=== PATIENT | female | born 1960 | race Two or more races ===

== ENCOUNTER 2020-09-04 14:19 | Emergency (ER) | payer OTHER ==
[~2020-09-04] VITALS: Ht 162.6 cm; Wt 77.0 kg
[2020-09-04] MEDS ORDERED: MORPHINE SULFATE 4 MG/ML CPJ (NOT FOR IM USE) IV STA (14:47)
[2020-09-04] MEDS ORDERED: FAMOTIDINE 20MG/2ML VIAL IV ONE (15:00)
[2020-09-04] MEDS ORDERED: LABETALOL 5MG/ML SYR 20 MG/4 ML SYRINGE IV ONE (15:30)
[2020-09-04 16:02] LABS: BASOPHILS % 1.1 % (0.0-2.0); CHLORIDE 101 mEq/L (98-107); EOSINOPHILS % 2.7 % (0.0-5.0); HEMATOCRIT. 44.4 % (36.0-48.0); HEMOGLOBIN. 14.7 g/dL (12.0-16.0); LYMPHOCYTES % 27.4 % (20.0-50.0); MEAN CORPUSCULAR HEMOGLOBIN 28.1 pg (28.0-32.0); MEAN CORPUSCULAR VOLUME 84.9 fL (81.0-99.0); MEAN PLATELET VOLUME 8.7 fl (7.4-10.4); MONOCYTES % 9.7 % (2.0-8.0); NEUTROPHILS % 59.1 % (40.0-76.0); PLATELET 223 x1000/uL (130-400); RED BLOOD CELL COUNT 5.23 mill/uL (4.2-5.4); RED CELL DISTRIBUTION WIDTH 14.5 % (11.6-14.6)
[2020-09-04] MEDS ORDERED: IOHEXOL-350 100 ML BOTTLE ONE (21:12)
[2020-09-04] MEDS ORDERED: POLY17PO3 MT (21:44)
[2020-09-04 21:54] VITALS: BP 130/76
[2020-09-04] MEDS ORDERED: PROT20 MT (21:59)
== END 2020-09-04 22:18 | disposition home or self-care (01) ==
LOC: ER 14:56
DX: I24.9 Acute ischemic heart disease, unspecified (principal); I16.1 Hypertensive emergency; I11.9 Hypertensive heart disease without heart failure; Z79.899 Other long term (current) drug therapy; Z98.890 Other specified postprocedural states
CPT/HCPCS: 36415; 71045; 71275; 80053; 83880; 84484; 85025; 85379; 93005; 96374; 96375; 99285; J2270; J3490; Q9967; Z7610